=== PATIENT | male | born 1945 | race Native Hawaiian/Other Pacific Islander ===

== ENCOUNTER 2017-08-15 16:44 | Emergency (ER) | payer OTHER ==
[~2017-08-15] VITALS: Ht 170.2 cm; Wt 80.7 kg
[~2017-08-15 16:44] MED LIST: ACCUPRIL40 MG OR; AMLO5TAB PO; ASA LOW STR81 MG PO; CENTRUM SILVER PO; GLIP10TA55 PO; GLIP5TAB65 PO; GLUCOPHAGE1000 MG PO; HYDR25TA60 PO; INSU100I2 SC; LANTUS100 MG/ML SC; LEVO0.08 PO; METF100038 OR; METF850T PO; SIMV10TA PO; UNITH DIRECT88 MCG PO
[2017-08-15 16:45] VITALS: TEMP 99.9
[2017-08-15 18:01] VITALS: BP 147/72
== END 2017-08-15 18:05 | disposition home or self-care (01) ==
LOC: ED 16:44
DX: I10 Essential (primary) hypertension (principal)
CPT/HCPCS: 99282